=== PATIENT | female | born 1990 | race African-American/Black ===

== ENCOUNTER 2017-05-17 14:04 | Emergency (ER) | payer SELFPAY ==
--- NOTE | 2017-05-17 15:33 | ER Document Report ---
HPI - HPI Patient complains to provider of: intermittent chest pain Onset: Yesterday - 9:30 pm Onset/Duration: Sudden Pain Level: Denies Context: 27-year-old non-smoker, non-hormones, female complaining of left-sided chest pain that hurts when she takes a deep breath, moves her left arm, or touches the area. She thought maybe she had a lump on the top of her chest. The chest pain started 930 last night and lasted about 30 minutes while she was walking to the car to eat dinner with her mom. It occurred again driving home after eating out and then she went to sleep for the night. She woke up at 10 this morning and at 11 she started feeling the pain intermittently but not as strong as she did the night before. There was no shortness of breath. No runny nose sore throat or cough. No fever. No nausea vomiting or diarrhea. No rash. I asked her what she did 2 days prior and she remembered that she strained to the left a heavy case of water bottles on Saturday when they went grocery shopping. Heart score is 0. No family history of coronary artery disease. Associated Symptoms: None Exacerbated by: Movement, Deep breathing Relieved by: Denies Similar symptoms previously: No Recently seen / treated by doctor: No - ROS ROS below otherwise negative: Yes Systems Reviewed and Negative: Yes All other systems reviewed and negative Past Medical History - General Information source: Patient - Social History Smoking Status: Never Smoker Frequency of alcohol use: None Drug Abuse: None Lives with: Parents Family History: denies: CAD, Hyperlipidemia, Hypertension - Medical History Medical History: Negative Surgical Hx: Negative Vertical Provider Document - CONSTITUTIONAL Agree With Documented VS: Yes Exam Limitations: No Limitations - INFECTION CONTROL TRAVEL OUTSIDE OF THE [place] IN LAST 30 DAYS: No - HEENT HEENT: Normal ENT Exam, Normocephalic - NECK Neck: Supple. negative: Lymphadenopathy-Left, Lymphadenopathy-Right - RESPIRATORY Respiratory: Breath Sounds Normal, No Respiratory Distress O2 Sat by Pulse Oximetry: 98 Notes: very tender to light touch left chest from sternum to under breast, worse with left arm range of motion, deep breath. - CARDIOVASCULAR Cardiovascular: Regular Rate, Regular Rhythm - GI/ABDOMEN Gastrointestinal: Abdomen Soft, Abdomen Non-Tender, No Organomegaly - MUSCULOSKELETAL/EXTREMETIES Musculoskeletal/Extremeties: MAEW, FROM, Tender - see above - NEURO Level of Consciousness: Awake, Alert, Appropriate - DERM Integumentary: Warm, Dry, No Rash Course - Vital Signs Vital signs: Temp Pulse Resp BP Pulse Ox 98.5 F 75 16 121/66 98 05/17/17 14:39 05/17/17 14:39 05/17/17 14:39 05/17/17 14:39 05/17/17 14:39 Discharge - Discharge Clinical Impression: left chest muscle strain Condition: Good Disposition: HOME, SELF-CARE Instructions: Chest Wall Pain ([facility]), Warm Packs ([facility]), Anti-Inflammatory Medication ([facility]) Additional Instructions: warm compress to sore muscles motrin for pain to er if worse expect to be better by 3 days Please complete the patient satisfaction survey if you get one, and return it.. If you do not receive a survey, then you can go to the [facility] website, [email or web address] and place your comments about your very good care. Thank you very much. It was a pleasure being your medical provider today. Prescriptions: Ibuprofen [Motrin 600 mg Tablet] 600 mg PO Q8HP PRN #30 tablet PRN Reason:
[2017-05-17] MEDS ORDERED: IBUPROFEN 600 MG TABLET PO ONE (15:56)
[2017-05-17 16:45] VITALS: BP 116/59
== END 2017-05-17 16:45 | disposition home or self-care (01) ==
LOC: ER 14:04
DX: S29.011A Strain of muscle and tendon of front wall of thorax, initial encounter (principal); X58.XXXA Exposure to other specified factors, initial encounter
CPT/HCPCS: 99283